=== PATIENT | male | born 1985 | race Caucasian/White ===

== ENCOUNTER 2019-10-19 11:42 | Emergency (ER) | payer OTHER, SELFPAY ==
--- NOTE | 2019-10-19 11:51 | ED_ITS ---
HPI - General Adult General: Chief complaint: General Medical Stated complaint: COVID SCREENING Time Seen by Provider: 10/19/19 11:51 History of Present Illness: HPI narrative: 33-year-old pleasant gentleman presents to the emergency department with his ill 2-year-old son. His son will need admission due to altered event experience this morning. Father will need to be screened for COVID, his spouse has been ill with fever for 1 week and complaints of weakness. His spouse is not with him today. He denies symptoms of cough, weakness or fever. Associated symptoms: Deny chest pain, diaphoresis, dyspnea, headache(s), nausea, rash, palpitations or vomiting Review of Systems General: Reports: 10 or more systems reviewed and unremarkable except in HPI and below Const: Denies: fever(s), chills or diaphoresis Eyes: Denies: blurry vision or eye redness ENMT: Denies: throat pain, dental pain or disequilibrium Card: Denies: chest pain, palpitations or irregular heart rhythm Resp: Denies: dyspnea, productive cough, non-productive cough or wheezing GI: Denies: abdominal pain, nausea or vomiting : Denies: dysuria Musc: Denies: back pain Skin/Breast: Denies: rash or pruritus Neuro: Denies: headache(s), weakness in extremities or behavioral changes Chad/Lymph: Denies: easy bruising Physical Exam Const: COMMON NORMALS: no acute distress, patient oriented x3, healthy appearing and alert GENERAL APPEARANCE: cooperative, comfortable and well hydrated HENMT: COMMON NORMALS: normocephalic, Normal external nose present and moist oral mucous membranes HEAD & SCALP: normocephalic NOSE: Normal external nose present Eye: COMMON NORMALS: Equal, round and reactive pupils present and EOMs intact bilaterally GENERAL EYE: appearance normal, both eyes and all related structures PUPIL: Yes Equal, round and reactive pupils present Neck/C-Spine: COMMON NORMALS: full ROM and no lymphadenopathy GENERAL: Yes normal visual inspection and Yes trachea midline CERVICAL SPINE: Yes cervical ROM normal Lymph: LYMPHATIC: no lymphadenopathy noted Chest: COMMONS NORMALS: normal inspection of the chest Resp: COMMON NORMALS: normal respiratory effort and clear to auscultation bilaterally AUSCULTATION: clear to auscultation bilaterally Cardio: COMMON NORMALS: regular rhythm, S1 normal heart sound present and S2 normal heart sound present RHYTHM: regular rhythm HEART SOUNDS: S1 normal heart sound present and S2 normal heart sound present GI: COMMON NORMALS: Soft to palpation and non-tender INSPECTION: Yes normal to inspection PALPATION: Yes Soft to palpation : COMMON NORMALS: Yes no CVA tenderness BLADDER/KIDNEY EXAM: Yes no CVA tenderness Back/Pelvis: COMMON NORMALS: no CVA tenderness and thoracic and lumbar spine normal to inspection Extremity: COMMON NORMALS: normal to inspection and capillary refill normal Neuro: COMMON NORMALS: patient oriented x3 and no focal motor deficits SENSORIUM/ORIENTATION: Yes alert Psych: COMMON NORMALS: mental status grossly normal, Normal thought process present and cooperative ACTIVITY/MOTOR BEHAVIOR: Yes appropriate eye contact THOUGHT PROCESS: Normal thought process present Skin: COMMON NORMALS: no rashes or lesions noted and turgor normal GENERAL SKIN EXAM: no rashes or lesions noted and turgor normal Course Vital Signs: Vital signs: Vital Signs Temperature 98.2 F 10/19/19 14:09 Pulse Rate 80 10/19/19 14:09 Respiratory Rate 14 10/19/19 14:09 Blood Pressure 124/73 10/19/19 14:09 Pulse Oximetry 97 10/19/19 14:09 MDM - General Adult Lab Data: Labs: Lab Results 10/19/19 Range/Units 12:20 SARS-CoV-2 Ag (Rap id) Negative (Negative) Discharge Plan Discharge Patient Disposition: Home Clinical Impression: Healthy adult Condition: Stable Prescriptions: No Action No Known Home Medications RF: 0 Discharge Orders: Discharge Order (Routine); Ordered 10/19/19 Ordered By: Saniya Jolley Discharge Diet: Usual diet Discharge Activity: Resume usual activity Activity Restrictions/Additional Instructions: You were screened today for COVID due to the illness of her son. Please return to the emergency department for any needs or concerns Discharge Date/Time: 10/19/19 14:09 Coding Level of Care Code ED Health Services Rn for Laureano Fwsulema Exam Comprehensive
[2019-10-19 11:56] VITALS: BP 116/78; PULSE 82; RESP 14; TEMP 36.8; O2SAT 97; BMI 25.8
--- NOTE | 2019-10-19 12:30 | PC.NURSE ---
Rapid Covid Swab obtained and sent to Lab.
[2019-10-19 13:13] LABS: SARS Covid-2 Antigen Negative (Negative)
[2019-10-19 14:09] VITALS: BP 124/73; PULSE 80; RESP 14; TEMP 36.8; O2SAT 97
== END 2019-10-19 14:09 | disposition home or self-care (01) ==
PROVIDERS: Emergency Provider Nurse Practitioner Family
DX: Z11.59 Encounter for screening for other viral diseases (principal)
CPT/HCPCS: 12345; 87426; 99281; 99282

== ENCOUNTER 2021-01-18 20:00 | Outpatient (CLI) | payer OTHER, SELFPAY | END 2021-01-18 20:01 | disposition home or self-care (01) | LOC: SLEEP 01-19 09:54 | PROVIDERS: PCP Electrodiagnostic Medicine; Visit Provider Electrodiagnostic Medicine | DX: M77.01 Medial epicondylitis, right elbow (principal); G47.33 Obstructive sleep apnea (adult) (pediatric) | CPT/HCPCS: 95810 ==

== ENCOUNTER 2023-09-24 02:34 | Emergency (ER) | payer OTHER, SELFPAY ==
[2023-09-24 02:34] VITALS: BP 136/80; PULSE 90; RESP 16; TEMP 37.2; O2SAT 99; BMI 25.8
--- NOTE | 2023-09-24 02:37 | XRR_ITS ---
PROCEDURE INFORMATION: Exam: XR Chest Exam date and time: 09/24/2023 2:39 AM Age: 37 years old Clinical indication: Other: Syncope; Patient HX: EMS arrival for syncopal episode TECHNIQUE: Imaging protocol: Radiologic exam of the chest. Views: 1 view. COMPARISON: No relevant prior studies available. FINDINGS: Lungs: Unremarkable. No consolidation. Pleural spaces: Unremarkable. No pleural effusion. No pneumothorax. Heart/Mediastinum: Unremarkable. No cardiomegaly. Bones/joints: Unremarkable. XR/XR chest 1V portable [id number] IMPRESSION: No acute findings.
[2023-09-24 02:48] LABS: Basophils # 0.1 10^3/uL (0.0-0.1); Basophils % 0.6 %; Eosinophils % 0.3 %; Hematocrit 45.7 % (37-53); Lymphocytes # 1.1 10^3/uL (0.8-4.8); Lymphocytes % 10.6 %; Mean Corpuscular HGB Conc 32.2 g/dL (30-55); Mean Corpuscular Hemoglobin 29.4 pg (27-33); Mean Corpuscular Volume 91.4 fl (82-101); Mean Platelet Volume 9.7 fL (7.4-10.4); Monocytes # 1.3 10^3/uL (0.2-0.9); Monocytes % 11.9 %; Neutrophils # 7.98 10^3/uL (1.8-7.7); Nucleated Red Blood Cells % 0 %; Platelet Count 272 10^3/cmm (157-399); White Blood Count 10.49 10^3/uL (3.29-11.43)
--- NOTE | 2023-09-24 02:59 | W.ED.SYNCOPE ---
HPI - Syncope General: Chief Complaint: Syncope Stated Complaint: syncope Time Seen by Provider: 09/24/23 02:35 History of Present Illness: Patient arrived via EMS secondary to syncope. Patient said he just got home [place] in [place] but nauseous and then hot and then passed out. Patient was on for sure what happened after that other than he woke up on the ground. Patient has no complaints at this time and is back totally to normal but came in to be checked out. Patient is never done this before. Review of Systems General: Reports: 10 or more systems reviewed and unremarkable except in HPI and below PFSH ED PFSH: Surgical History Status post vasectomy Family History Mother , AT AGE 48 Brain aneurysm Father Healthy adult Social History Alcohol intake: never Substance/Drug Use: never Marital status: Number of children: 4 service: Yes Current occupational status: employed Physical Exam Const: COMMON NORMALS: no acute distress, average body habitus, patient oriented x3, no limitations, healthy appearing, alert and well nourished HENMT: COMMON NORMALS: normocephalic, atraumatic, hearing grossly normal bilaterally, external ears normal, Normal external nose present and moist oral mucous membranes HEAD & SCALP: normocephalic and atraumatic NOSE: Normal external nose present EXTERNAL EAR: Yes external ears normal Eye: COMMON NORMALS: Equal, round and reactive pupils present, EOMs intact bilaterally, conjunctivae normal and no scleral icterus CONJUNCTIVA: Yes conjunctivae normal PUPIL: Yes Equal, round and reactive pupils present Neck/C-Spine: COMMON NORMALS: full ROM, no lymphadenopathy, supple, no meningeal signs, no JVD and Thyroid normal THYROID: Thyroid normal Chest: COMMONS NORMALS: normal inspection of the chest and normal palpation of entire chest wall Resp: COMMON NORMALS: normal respiratory effort, No retractions, No use of accessory muscles and clear to auscultation bilaterally AUSCULTATION: clear to auscultation bilaterally Cardio: COMMON NORMALS: no JVD, regular rate, regular rhythm, S1 normal heart sound present, S2 normal heart sound present, No gallops present (Cardio), No clicks present (Cardio), No murmurs present (Cardio) and No rub (Cardio) RATE: regular rate RHYTHM: regular rhythm HEART SOUNDS: S1 normal heart sound present and S2 normal heart sound present GI: COMMON NORMALS: Normal to inspection, nondistended, normoactive bowel sounds present, Soft to palpation, non-tender, No hepatosplenomegaly present and no masses PALPATION: Yes Soft to palpation and Yes No hepatosplenomegaly present Neuro: COMMON NORMALS: patient oriented x3 SENSORIUM/ORIENTATION: Yes alert MENINGEAL SIGNS: Yes no meningeal signs Course Vital Signs: Vital signs: Vital Signs Temperature 98.9 F 09/24/23 02:34 Pulse Rate 83 09/24/23 03:39 Respiratory Rate 18 09/24/23 03:39 Blood Pressure 160/92 09/24/23 03:39 Pulse Oximetry 99 09/24/23 03:39 Oxygen Delivery Me thod Room Air 09/24/23 03:39 MDM - Syncope Medical Decision Making Patient presents to the ER with syncopal episode. Patient was worked up with blood work, urinalysis, chest x-ray, all of which was essentially benign. Patient be discharged home to follow-up with his PCP. Medical Records I reviewed the patient's medical records. Lab Data I reviewed the patient's lab results. 09/24/23 02:38 09/24/23 02:38 Radiology Impressions Chest X-Ray 09/24/23 02:37 IMPRESSION: No acute findings. Laboratory Results WBC 10.49 10^3/uL (3.29-11.43) 09/24/23 02:38 RBC 5.00 10^6/uL (3.85-5.65) 09/24/23 02:38 Hgb 14.70 g/dL (11.27-16.99) 09/24/23 02:38 Hct 45.7 % (37-53) 09/24/23 02:38 MCV 91.4 fl (82-101) 09/24/23 02:38 MCH 29.4 pg (27-33) 09/24/23 02:38 MCHC 32.2 g/dL (30-55) 09/24/23 02:38 RDW 13.0 % (12.1-15.1) 09/24/23 02:38 Plt Count 272 10^3/cmm (157-399) 09/24/23 02:38 MPV 9.7 fL (7.4-10.4) 09/24/23 02:38 Neut % (Auto) 76.0 % 09/24/23 02:38 Lymph % (Auto) 10.6 % 09/24/23 02:38 [place] % (Auto) 11.9 % 09/24/23 02:38 Eos % (Auto) 0.3 % 09/24/23 02:38 Baso % (Auto) 0.6 % 09/24/23 02:38 Neut # (Auto) 7.98 10^3/uL (1.8-7.7) H 09/24/23 02:38 Lymph # (Auto) 1.1 10^3/uL (0.8-4.8) 09/24/23 02:38 [place] # (Auto) 1.3 10^3/uL (0.2-0.9) H 09/24/23 02:38 Eos # (Auto) 0.0 10^3/uL (0.0-0.8) 09/24/23 02:38 Baso # (Auto) 0.1 10^3/uL (0.0-0.1) 09/24/23 02:38 Nucleated RBC % (auto) 0 % 09/24/23 02:38 Nucleated RBCs # 0.0 /100WBC 09/24/23 02:38 Sodium 137 mmol/L (136-145) 09/24/23 02:38 Potassium 3.7 mmol/L (3.5-5.1) 09/24/23 02:38 Chloride 102 mmol/L (98-107) 09/24/23 02:38 Carbon Dioxide 24 mmol/L (22-29) 09/24/23 02:38 Anion Gap 14.7 (5-19) 09/24/23 02:38 BUN 12 mg/dL (6-20) 09/24/23 02:38 Creatinine 1.2 mg/dL (0.7-1.2) 09/24/23 02:38 GFR Calculation 68.1 mL/min (90-130) L 09/24/23 02:38 Glucose 135 mg/dL (65-115) H 09/24/23 02:38 Calculated Osmolality 286 mOsm/kg (285-295) 09/24/23 02:38 Calcium 8.6 mg/dL (8.5-10.5) 09/24/23 02:38 Magnesium 2.0 mg/dL (1.7-2.3) 09/24/23 02:38 Total Bilirubin 0.2 mg/dL (0.15-1.2) 09/24/23 02:38 AST 33 U/L (0-40) 09/24/23 02:38 ALT 48 U/L (0-41) H 09/24/23 02:38 Alkaline Phosphatase 71 U/L (40-130) 09/24/23 02:38 Troponin T Baseline < 6 ng/L (0-15) 09/24/23 02:38 Total Protein 7.5 g/dL (6.6-8.7) 09/24/23 02:38 Albumin 4.3 g/dL (3.5-5.2) 09/24/23 02:38 Globulin 3.2 g/dL (1.3-4.6) 09/24/23 02:38 Urine Color Yellow (Yellow) 09/24/23 03:34 Urine Appearance Clear (CLEAR) 09/24/23 03:34 Urine pH 6 (5-7) 09/24/23 03:34 Ur Specific [place] 1.015 (1.005-1.030) 09/24/23 03:34 Urine Protein Neg (Negative) 09/24/23 03:34 Urine Glucose (UA) Norm (Normal) 09/24/23 03:34 Urine Ketones Negative (Negative) 09/24/23 03:34 Urine Blood Neg (Negative) 09/24/23 03:34 Urine Nitrate Negative (Negative) 09/24/23 03:34 Urine Bilirubin Neg (Negative) 09/24/23 03:34 Urine Urobilinogen Neg mg/dL (Negative) 09/24/23 03:34 Ur Leukocyte Esterase Negative (Negative) 09/24/23 03:34 All radiology interpretation(s) finalized by discharge Discharge Plan Discharge Patient Disposition: Home Clinical Impression: Episode of syncope Qualifiers: Syncope type: unspecified Qualified Code(s): R55 - Syncope and collapse Condition: Stable Prescriptions: No Action baclofen 5 mg tablet 5 mg PO TID PRN (Reason: muscle pain) Qty: 20 0RF Discharge Orders: Discharge ED (Routine); Ordered 09/24/23 Ordered By: Abhi Ma Referrals: Ferny Jones DO [Primary Care Provider] - 1 week Patient Instructions: Syncope Activity Restrictions/Additional Instructions: Your evaluation in the ER did not show any acute cause of your syncope. Please follow-up with your family practice physician within the next 7 days for further evaluation and treatment. Thank you for choosing [facility] for your healthcare needs today. Please realize that you were seen in the emergency department and that we are providing you with an emergency medical screening exam and this may not be a complete and all exclusive of all testing and/or medical workup we may need to determine your element or severity of your illness. It is very important that you follow-up as instructed with your primary care provider or specialist for the additional evaluation and to discuss your medical treatment plan. You may return to the emergency department should you have concerns or if your condition changes or worsens in any way. Coding Level of Care Code ED Records Associate for Laureano Acosta
[2023-09-24 03:04] LABS: Troponin(5th) Baseline < 6 ng/L (0-15)
--- NOTE | 2023-09-24 03:06 | ECG_ITS ---
[facility] Test Date: 2023-09-24 Pat Name: Manfred Rodriguez Department: Room: Gender: Male Functional Director: : 1985 Requested By: Abhi Ma Order Number: [id number] Percy MD: Glenn Us M.D. Measurements Intervals [place] Rate: 86 P: 31 [place]: 150 QRS: 34 QRSD: 101 T: 5 QT: 342 QTc: 409 Interpretive Statements SINUS RHYTHM NONSPECIFIC T-WAVE ABNORMALITY No previous ECG available for comparison Electronically Signed On 09-24-2023 7:13:31 CDT by Glenn Us M.D. [email or web address]
[2023-09-24 03:08] LABS: Alanine Aminotransferase 48 U/L (0-41); Albumin Level 4.3 g/dL (3.5-5.2); Alkaline Phosphatase 71 U/L (40-130); Aspartate Amino Transferase 33 U/L (0-40); Blood Urea Nitrogen 12 mg/dL (6-20); Calcium 8.6 mg/dL (8.5-10.5); Carbon Dioxide 24 mmol/L (22-29); Chloride 102 mmol/L (98-107); Creatinine Clr Calc Pharmacy 91.1488; Globulin 3.2 g/dL (1.3-4.6); Glomerular Filtration Rate 68.1 mL/min (90-130); Glucose 135 mg/dL (65-115); Osmolality Calculated 286 mOsm/kg (285-295); Sodium 137 mmol/L (136-145); Total Bilirubin 0.2 mg/dL (0.15-1.2); Total Protein 7.5 g/dL (6.6-8.7)
[2023-09-24 03:09] LABS: Anion Gap 14.7 (5-19); Potassium 3.7 mmol/L (3.5-5.1)
[2023-09-24 03:14] VITALS: BP 153/95; PULSE 94; O2SAT 98
[2023-09-24 03:39] VITALS: BP 160/92; PULSE 83; RESP 18; O2SAT 99
[2023-09-24 03:43] LABS: Add Urine Microscopic? NO; Charge for UA Resulting for Rev
[2023-09-24 03:59] LABS: Bilirubin Urine Neg (Negative); Blood Urine Neg (Negative); Glucose Urine UA Norm (Normal); Ketones Urine Negative (Negative); Leukocyte Esterase Urine Negative (Negative); Nitrate Urine Negative (Negative); Protein Urine Neg (Negative); Specific Gravity, Urine 1.015 (1.005-1.030); Urine Appearance Clear (CLEAR); Urine Color Yellow (Yellow); Urobilinogen Urine Neg (Negative); pH Urine 6 (5-7)
[2023-09-24 04:17] VITALS: BP 162/97; PULSE 81; RESP 16; O2SAT 94
== END 2023-09-24 04:19 | disposition home or self-care (01) ==
PROVIDERS: Emergency Provider Emergency Medicine; PCP Electrodiagnostic Medicine
DX: R55 Syncope and collapse (principal)
CPT/HCPCS: 71045; 80053; 81003; 83735; 84484; 85025; 93005; 99285

== ENCOUNTER 2023-10-30 14:13 | Outpatient (CLI) | payer OTHER, SELFPAY ==
--- NOTE | 2023-10-30 14:21 | MR_ITS ---
WS: [id number] MRI BRAIN WITH AND WITHOUT CONTRAST HISTORY: SYNCOPE COMPARISON: None available. TECHNIQUE: Multiplanar imaging performed through the brain with MultiHance 19 ml's IV. No acute infarcts are seen. Hardy-white matter differentiation is well preserved. No susceptibility artifacts or prior lacunar infarcts. Ventricles and extra-axial spaces are normal. Clivus and pituitary gland are normal. Visualized posterior fossa and brainstem are also normal. Postcontrast images are negative for masses or vascular malformations. Dural venous sinuses are normal. Paranasal sinuses: Moderate mucoperiosteal thickening LEFT maxillary sinus. No air-fluid levels. Mastoid air cells: Normal. Calvarium and scalp: Normal. MR/MR head wo/w con [id number] IMPRESSION: 1. No acute infarct or enhancing mass. 2. No significant volume loss or small vessel disease. 3. Moderate LEFT maxillary sinus disease.
[2023-10-30] MEDS: gadobenate dimeglumine 20 mL vial IV (15:00)
== END 2023-10-30 14:14 | disposition home or self-care (01) ==
LOC: RAD 14:14
PROVIDERS: PCP Electrodiagnostic Medicine; Visit Provider Electrodiagnostic Medicine
DX: R55 Syncope and collapse (principal); J01.00 Acute maxillary sinusitis, unspecified
CPT/HCPCS: 70553; A9577